=== PATIENT | female | born 1965 | race Hispanic/Latino ===

== ENCOUNTER 2024-05-03 07:21 | Day surgery (SDC) | payer SELFPAY ==
[~2024-05-03] VITALS: Ht 142.2 cm; Wt 70.3 kg
[~2024-05-03 07:21] MED LIST: ATORVASTATIN CA10 MG PO; BACTRIM DS1 TAB PO; GLIPIZIDE ER5 MG PO; METFORMIN500 M2 PO; PROTONIX40 M2 PO; SUCRALFATE1 GM PO; ULTRAM50 M1 PO; ZOFRAN ODT4 MG PO
[2024-05-03] MEDS ORDERED: SODIUM CHLORIDE 0.9% 1,000 ML IV ONE (07:24)
[2024-05-03] MEDS ORDERED: FAMOTIDINE 10MG/ML 2ML SDV IV ONE (07:24)
[2024-05-03] MEDS ORDERED: ONDANSETRON HCl 4 MG/2 ML SDV ONE (09:43)
[2024-05-03 09:51] VITALS: BP 115/67
[2024-05-03] MEDS ORDERED: STERILE WATER FOR IRRIGATION 1,000 ML BTL IR ONE (10:44)
[2024-05-03] MEDS ORDERED: PROPOFOL 500 MG/50 ML VIAL IV ONE (12:31)
[2024-05-03] MEDS ORDERED: GLYCOPYRROLATE 0.2 MG/ML IV ONE (12:31)
[2024-05-03] MEDS ORDERED: LIDOCAINE HCL 2% 2ML SDV IV ONE (12:31)
== END 2024-05-03 10:04 | disposition home or self-care (01) | DRG 379 ==
LOC: ENDO 07:21 → ORM 08:00 → ENDO 10:04
PROVIDERS: ATTEND Surgery
PROC: 0DJD8ZZ Inspection of Lower Intestinal Tract, Via Natural or Artificial Opening Endoscopic (ICD-10-PCS; principal; 2024-05-03)
DX: K57.31 Diverticulosis of large intestine without perforation or abscess with bleeding (principal); K64.8 Other hemorrhoids